=== PATIENT | male | born 1970 | race Caucasian/White ===

== ENCOUNTER → 2019-08-05 | Outpatient (CLI) | payer OTHER ==
[~2019-08-05] MED LIST: ATEN25TA PO; ATOR1TAB21 PO; GLUCAGON INJ 1MG VIAL As Ordered ONE; HYDR25TAB PO; ISOVUE-370 76% 100ML VIAL As Ordered ONE; OXYC1TAB15 PO; PARO10TA3 PO; VITA500C19 PO; VoLumen 0.1% SUSPENSION 450ML BOTTLE As Ordered ONE
--- NOTE | 2019-08-05 14:35 | REP ---
Clinical: Diarrhea. Technique: Contrast enhanced CT using enterography technique. Axial contrast enhanced images obtained in arterial and portal venous phases of enhancement using 100 ml Isovue 370 intravenous contrast material along with low density oral contrast material as per protocol. Coronal and sagittal re-formations and MIP reconstructions are obtained. Comparison: 07/12/2019, 07/13/2019 Findings: Current examination demonstrates mild to moderate diffuse jejunal fold thickening along with mildly prominent mesenteric adenopathy similar to prior examination. The previously noted at focal jejunal intussusception was likely transient and no longer apparent on current examination. The stomach, duodenum, ileum, and large bowel appear relatively normal including normal terminal ileum, cecum and appendix in the right lower quadrant. No ascites or free air. Liver, spleen, pancreas, gallbladder, bilateral adrenal glands, right kidney, and left pelvic kidney remain relatively normal / stable. Incidental 1.3 cm left hepatic cyst again noted. Pelvis demonstrates normal bladder and age appropriate prostate/seminal vesicles. Abdominal aorta without aneurysm or dissection. Musculoskeletal structures demonstrate age-related degenerative changes along with advanced changes to the bilateral femoral heads/hips (right greater than left) possibly related to underlying avascular necrosis. Impression: 1. Moderate diffuse jejunal fold thickening along with mesenteric adenopathy is nonspecific. Underlying malabsorption diseases including celiac sprue should be considered. 2. Previously noted jejunal intussusception has resolved and was likely transient due to the associated adenopathy and mucosal fold thickening. 3. 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 Electronically Signed by Darrin Hull MD 08/05/2019 02:26 P
== END ==
LOC: M RAD 12:06
PROVIDERS: ATTEND Physician Assistant Medical
DX: R19.7 Diarrhea, unspecified (principal)
CPT/HCPCS: 36415; 74177; 80053; 82150; 83690; 85025; 86140; J1610; Q9967

== ENCOUNTER → 2019-08-05 | Outpatient (CLI) | payer OTHER ==
[~2019-08-05] MED LIST changes: -GLUCAGON INJ 1MG VIAL As Ordered ONE; -ISOVUE-370 76% 100ML VIAL As Ordered ONE; -VoLumen 0.1% SUSPENSION 450ML BOTTLE As Ordered ONE
[2019-08-05 12:27] LABS: BASO % 0.2 % (0.0-1.0); EOS # 0.1 10^3/uL (0.0-0.5); EOS % 0.6 % (0.0-3.0); HEMATOCRIT 41.5 % (42.0-52.0); HEMOGLOBIN 13.4 g/dl (13.5-17.5); LYMPH % 5.7 % (24.0-44.0); MEAN CORPUSCULAR HEMOGLOBIN 28.5 pg (27.0-33.0); MEAN CORPUSCULAR HGB CONC 32.3 g/dl (32.0-36.5); MEAN CORPUSCULAR VOLUME 88.1 fl (80.0-96.0); MONO # 1.2 10^3/uL (0.0-0.8); MONO % 6.7 % (0.0-5.0); NEUTROPHILS # 15.1 10^3/uL (1.5-8.5); NEUTROPHILS % 86.3 % (36.0-66.0); PLATELET COUNT, AUTOMATED 260 10^3/uL (150-450); RED BLOOD COUNT 4.71 10^6/uL (4.30-6.10); WHITE BLOOD COUNT 17.5 10^3/uL (4.0-10.0)
[2019-08-05 13:00] LABS: ALBUMIN 3.2 GM/DL (3.2-5.2); ALT/SGPT 58 U/L (12-78); AMYLASE 44 U/L (25-115); BILIRUBIN,TOTAL 0.4 MG/DL (0.2-1.0); BLOOD UREA NITROGEN 14 MG/DL (7-18); C REACTIVE PROTEIN QUANTITATIV 1.09 MG/DL (0.00-0.30); CARBON DIOXIDE LEVEL 27 MEQ/L (21-32); CHLORIDE LEVEL 104 MEQ/L (98-107); CREATININE FOR GFR 0.77 MG/DL (0.70-1.30); GLOMERULAR FILTRATION RATE > 60.0 (>60); GLUCOSE, FASTING 133 MG/DL (70-100); LIPASE 127 U/L (73-393); POTASSIUM SERUM 3.7 MEQ/L (3.5-5.1); SODIUM LEVEL 136 MEQ/L (136-145); TOTAL PROTEIN 7.4 GM/DL (6.4-8.2)
== END ==
LOC: M LAB 11:09
PROVIDERS: ATTEND Physician Assistant Medical
DX: R19.7 Diarrhea, unspecified (principal)

== ENCOUNTER → 2019-08-06 | Outpatient (REF) | payer OTHER | LOC: M LAB REF 14:24 | PROVIDERS: ATTEND Physician Assistant Medical | DX: R19.7 Diarrhea, unspecified (principal) ==

== ENCOUNTER → 2019-08-12 | Outpatient (CLI) | payer OTHER ==
[~2019-08-12] MED LIST changes: +ISOVUE-370 76% 100ML VIAL As Ordered ONE
--- NOTE | 2019-08-12 12:19 | REP ---
CT CHEST WITH IV CONTRAST: There is a 4 mm nodular density in the right lower lobe without calcification. There are four calcified granulomas identified in the left upper lobe. No other abnormal parenchymal opacities are seen. Normal size lymph nodes are seen in the axillary, mediastinal, and hilar regions with no evidence of significant adenopathy. The heart is normal in size. There is no pleural or pericardial effusion. Thoracic aorta is normal in caliber with no aneurysm or dissection. IMPRESSION: No significant adenopathy. Small calcified granulomas left upper lobe. 4 mm nodular density right lower lobe. If the patient is low risk for cancer, then no followup is needed. If there is high risk for cancer then followup is recommended in 6 months. Electronically Signed by Adonis Sewell MD 08/12/2019 03:10 P
== END ==
LOC: M RAD 10:50
PROVIDERS: ATTEND Internal Medicine Hematology & Oncology
DX: R06.02 Shortness of breath (principal); R59.0 Localized enlarged lymph nodes; R63.4 Abnormal weight loss
CPT/HCPCS: 71260; Q9967

== ENCOUNTER → 2019-08-31 | Outpatient (CLI) | payer OTHER ==
[~2019-08-31] MED LIST changes: -ISOVUE-370 76% 100ML VIAL As Ordered ONE
== END ==
LOC: M LAB 11:25
PROVIDERS: ATTEND Physician Assistant Medical
DX: R10.13 Epigastric pain (principal); R19.7 Diarrhea, unspecified

== ENCOUNTER 2019-09-01 06:07 | Emergency (ER) | payer OTHER ==
[~2019-09-01] VITALS: Ht 180.3 cm; Wt 64.1 kg
[2019-09-01] MEDS ORDERED: NS 1,000 ML IV ONE (06:45)
[2019-09-01 07:03] LABS: BASO % 0.3 % (0.0-1.0); EOS # 0.1 10^3/uL (0.0-0.5); EOS % 1.8 % (0.0-3.0); HEMATOCRIT 44.8 % (42.0-52.0); HEMOGLOBIN 14.2 g/dl (13.5-17.5); LYMPH # 1.5 10^3/uL (1.5-5.0); LYMPH % 19.2 % (24.0-44.0); MEAN CORPUSCULAR HEMOGLOBIN 28.1 pg (27.0-33.0); MEAN CORPUSCULAR HGB CONC 31.7 g/dl (32.0-36.5); MEAN CORPUSCULAR VOLUME 88.7 fl (80.0-96.0); MONO # 1.1 10^3/uL (0.0-0.8); MONO % 14.2 % (0.0-5.0); NEUTROPHILS # 4.9 10^3/uL (1.5-8.5); NEUTROPHILS % 64.2 % (36.0-66.0); PLATELET COUNT, AUTOMATED 247 10^3/uL (150-450); RED BLOOD COUNT 5.05 10^6/uL (4.30-6.10); WHITE BLOOD COUNT 7.6 10^3/uL (4.0-10.0)
[2019-09-01 07:34] LABS: ALBUMIN 3.4 GM/DL (3.2-5.2); ALT/SGPT 78 U/L (12-78); BILIRUBIN,DIRECT 0.2 MG/DL (0.0-0.2); BILIRUBIN,TOTAL 0.5 MG/DL (0.2-1.0); CK-MB VALUE MASS < 1.0 NG/ML (<3.6); CPK CREATINE PHOSPHOKINASE 106 U/L (39-308); LIPASE 256 U/L (73-393); MB/CK RELATIVE INDEX 0.94 (< OR =4); TOTAL PROTEIN 8.3 GM/DL (6.4-8.2)
--- NOTE | 2019-09-01 07:43 | REPVR ---
PROCEDURE INFORMATION: Exam: CT Abdomen And Pelvis Without Contrast Exam date and time: 09/01/2019 7:01 AM Age: 49 years old Clinical indication: Abdominal pain; Flank; Right; Additional info: R flank extending into rlq/testicle TECHNIQUE: Imaging protocol: Computed tomography of the abdomen and pelvis without contrast. Radiation optimization: All CT scans at this facility use at least one of these dose optimization techniques: automated exposure control; mA and/or kV adjustment per patient size (includes targeted exams where dose is matched to clinical indication); or iterative reconstruction. COMPARISON: CT ABD/PELVIS W/ IV CONTRAST ONLY - OUTSIDE PRIOR 07/12/2019 5:13 PM FINDINGS: Liver: Subtle hypodense lesion in the left hepatic lobe measuring 9 mm. (Series 201, image 17). No change from prior. Gallbladder and bile ducts: Normal. No calcified stones. No ductal dilation. Pancreas: Normal. No ductal dilation. Spleen: Normal. No splenomegaly. Adrenals: Normal. No mass. Kidneys and ureters: Right kidney is normal in size and position. No right hydronephrosis. Crossed unfused ectopic left pelvic kidney. Stomach and bowel: Evaluation of bowel is limited. Fluid and stool in the colon. No abnormal bowel dilatation. Appendix: Appendix is normal. Intraperitoneal space: Unremarkable. No free air. No significant fluid collection. Vasculature: Unremarkable. No abdominal aortic aneurysm. Lymph nodes: Multiple small mesenteric nodes. Bladder: Unremarkable as visualized. Reproductive: Prostate is normal in size. Bones/joints: No acute fracture. Moderate degenerative spine. Partial collapse of the femoral heads bilaterally. Severe marginal osteophytes in the right hip. Mild marginal osteophytes in the left hip. There are subchondral cystic in the hip joints bilaterally, right greater than left. Soft tissues: Unremarkable. IMPRESSION: 1. No hydronephrosis or renal stones. 2. Diarrhea of unknown etiology. 3. 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 No change from prior. 4. 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 5. Additional findings as described. Electronically signed by: Elisa Maldonado On 09/01/2019 07:43:41 AM
[2019-09-01 08:16] VITALS: BP 113/70
--- NOTE | 2019-09-01 13:01 | ED PDOC ---
Post-Departure Follow-Up ct abd/p faxed to [facility] for fu Cathie Fernandez MD Sep 01, 2019 13:01
== END 2019-09-01 08:17 | disposition home or self-care (01) ==
LOC: M ED 06:07
DX: R31.9 Hematuria, unspecified (principal); M87.051 Idiopathic aseptic necrosis of right femur; M87.052 Idiopathic aseptic necrosis of left femur; F17.200 Nicotine dependence, unspecified, uncomplicated; I10 Essential (primary) hypertension; Z79.891 Long term (current) use of opiate analgesic; Z79.899 Other long term (current) drug therapy; R19.7 Diarrhea, unspecified

== ENCOUNTER → 2019-11-09 | Outpatient (CLI) | payer OTHER ==
[2019-11-09 13:03] LABS: BASO % 0.3 % (0.0-1.0); EOS # 0.1 10^3/uL (0.0-0.5); EOS % 1.4 % (0.0-3.0); HEMATOCRIT 42.8 % (42.0-52.0); HEMOGLOBIN 13.6 g/dl (13.5-17.5); LYMPH # 1.2 10^3/uL (1.5-5.0); LYMPH % 16.6 % (24.0-44.0); MEAN CORPUSCULAR HEMOGLOBIN 29.4 pg (27.0-33.0); MEAN CORPUSCULAR HGB CONC 31.8 g/dl (32.0-36.5); MEAN CORPUSCULAR VOLUME 92.6 fl (80.0-96.0); MONO # 0.7 10^3/uL (0.0-0.8); MONO % 10.1 % (0.0-5.0); PLATELET COUNT, AUTOMATED 263 10^3/uL (150-450); RED BLOOD COUNT 4.62 10^6/uL (4.30-6.10)
[2019-11-12 18:07] LABS: CHROMOGRANIN A 220.6 ng/mL (0.0-101.8)
== END ==
LOC: M LAB 11:54
PROVIDERS: ATTEND Physician Assistant Medical
DX: R19.7 Diarrhea, unspecified (principal)

== ENCOUNTER → 2019-11-12 | Outpatient (CLI) | payer OTHER ==
[~2019-11-12] MED LIST changes: +ISOVUE-370 76% 100ML VIAL As Ordered ONE
--- NOTE | 2019-11-19 09:18 | REP ---
CONTRAST ENHANCED CT OF THE ABDOMEN AND PELVIS CLINICAL: Abdominal pain and weight loss. COMPARISON: 09/01/2019. TECHNIQUE: Axial contrast images from the lung bases to the pubic symphysis using 100 mL Isovue-370 intravenous contrast material with coronal and sagittal reformations. FINDINGS: Lung bases are clear. Visualized heart and pericardium normal. Liver, spleen, pancreas, gallbladder, bilateral adrenal glands, and right kidney are normal. An ectopic left kidney is identified in the right hemipelvis without associated abnormal findings. The enteric system is without obstruction or acute inflammatory process. Normal terminal ileum, cecum, and appendix are identified in the right lower quadrant. Pelvis demonstrates normal bladder and age appropriate prostate/seminal vesicles. No ascites. No free air. No adenopathy. Abdominal aorta and vasculature appear normal. Musculoskeletal structures demonstrate degenerative changes to the lumbosacral spine, as well as evidence for significant avascular necrosis involving the bilateral hips (right greater than left). There appears to be cortical breaks through the bilateral femoral heads (right greater than left) suggesting chronic fracturing related to avascular necrosis (AVN). IMPRESSION: * No acute abdominopelvic pathology appreciated. 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 MTDD
== END ==
LOC: M RAD 08:55
PROVIDERS: ATTEND Physician Assistant Medical
DX: R63.4 Abnormal weight loss (principal)
CPT/HCPCS: 74177; Q9967

== ENCOUNTER → 2019-12-22 | Outpatient (CLI) | payer OTHER ==
[~2019-12-22] MED LIST changes: +HYDR-3490 PO; -HYDR25TAB PO; -ISOVUE-370 76% 100ML VIAL As Ordered ONE
[2019-12-22 12:15] LABS: C REACTIVE PROTEIN QUANTITATIV < 0.30 MG/DL (0.00-0.30); FERRITIN 58 NG/ML (26-388); IRON (FE) 72 UG/DL (65-175); RHEUMATOID FACTOR QUANT 18.3 IU/ML (<15.0); TOTAL PROTEIN 7.7 GM/DL (6.4-8.2); URIC ACID 4.9 MG/DL (3.5-7.2)
--- NOTE | 2019-12-22 13:56 | REP ---
INDICATION: PAIN IN RIGHT SHOULDER LABS FIRST FILE ROOM. COMPARISON: None. TECHNIQUE: Three views. FINDINGS: The right glenohumeral and acromioclavicular joints are normally aligned. Periarticular soft tissues are unremarkable. No erosive changes seen. IMPRESSION: Negative right shoulder radiographs. <Electronically signed by Alvarado Andino > 12/22/19 [id number]
[2019-12-23 11:58] LABS: ALBUMIN 4.03 GM/DL (3.29-5.55); ALBUMIN % 52.4 % (55.8-66.1); ALPHA-1-GLOBULIN % 5.5 % (2.9-4.9); ALPHA-1-GLOBULINS 0.42 GM/DL (0.17-0.41); ALPHA-2-GLOBULINS 0.74 GM/DL (0.42-0.99); ALPHA-2-GLOBULINS % 9.6 % (7.1-11.8); BETA-1-GLOBULINS % 7.8 % (4.7-7.2); BETA-2-GLOBULINS 0.55 GM/DL (0.19-0.55); BETA-2-GLOBULINS % 7.2 % (3.2-6.5); GAMMA GLOBULIN % 17.5 % (11.1-18.8); GAMMA GLOBULINS 1.35 GM/DL (0.65-1.58)
[2019-12-29 20:08] LABS: BETA-2 GLYCOPROTEIN I ABY IGA 9 (0-25); BETA-2 GLYCOPROTEIN I ABY IGG <9 (0-20); BETA-2 GLYCOPROTEIN I ABY IGM <9 (0-32); CARDIOLIPIN IGA ANTIBODY <9 APL U/mL (0-11); CARDIOLIPIN IGG ANTIBODY <9 GPL U/mL (0-14); CARDIOLIPIN IGM ANTIBODY 11 MPL U/mL (0-12); CYCLIC CITRULLINATED PEPTIDE 6 units (0-19); HLA-B27 Negative (.); Lyme Disease IgG/IgM Antibodie <0.91 ISR (0.00-0.90); Lyme Disease IgM Ab Quantitati <0.80 index (0.00-0.79); SSA SJOGRENS A <0.2 AI (0.0-0.9); SSB SJOGRENS B <0.2 AI (0.0-0.9)
== END ==
LOC: M LAB 10:31
PROVIDERS: ATTEND Internal Medicine
DX: M25.511 Pain in right shoulder (principal); M87.052 Idiopathic aseptic necrosis of left femur; R76.8 Other specified abnormal immunological findings in serum
CPT/HCPCS: 36415; 73030; 81374; 82728; 83540; 84165; 84550; 85613; 85652; 85732; 86140; 86146; 86147; 86200; 86235; 86431; 86617; G0463

== ENCOUNTER → 2019-12-22 | Outpatient (REF) | payer OTHER ==
[~2019-12-22] MED LIST changes: -HYDR-3490 PO; +HYDR25TAB PO
== END ==
LOC: M SFHCRHEU 12:35
PROVIDERS: ATTEND Internal Medicine
DX: Z53.9 Procedure and treatment not carried out, unspecified reason (principal); M87.052 Idiopathic aseptic necrosis of left femur; R76.8 Other specified abnormal immunological findings in serum; M25.50 Pain in unspecified joint

== ENCOUNTER → 2020-01-07 | Outpatient (CLI) | payer OTHER ==
--- NOTE | 2020-01-07 17:00 | REP ---
INDICATION: RT SHOULDER PAIN. COMPARISON: Plain films 12/22/2019. TECHNIQUE: Coronal oblique T1, T2 fat sat, sagittal oblique T2 fat sat, axial T2 fat sat, gradient echo. FINDINGS: Rotator cuff: There are partial-thickness undersurface tears of the supraspinatus and infraspinatus tendons. Acromioclavicular joint: There are mild hypertrophic degenerative changes at the acromioclavicular joint with a tiny amount of fluid in the joint and some minor subchondral marrow edema. Acromion: Type 2 Biceps Tendon: In bicipital groove, surrounded by small amount of fluid.. Hill Sach's deformity: None. Deltoid muscle: No abnormal signal. Biceps labral complex: Intact. Labrum: No tear. Cartilage: No defects. Bone marrow: Multiple tiny subcortical cysts are seen in the superolateral humeral head. Joint fluid: No effusion. IMPRESSION: Partial thickness undersurface tears of the supraspinatus and infraspinatus tendons. Mild hypertrophic degenerative changes acromioclavicular joint. No labral tear seen. Subcortical cystic changes superolateral humeral head. <Electronically signed by Adonis Sewell > 01/07/20 [id number]
== END ==
LOC: M RAD 15:03
PROVIDERS: ATTEND Internal Medicine
DX: M25.511 Pain in right shoulder (principal); M19.011 Primary osteoarthritis, right shoulder; M85.421 Solitary bone cyst, right humerus; S46.911A Strain of unspecified muscle, fascia and tendon at shoulder and upper arm level, right arm, initial encounter; X58.XXXA Exposure to other specified factors, initial encounter; Y92.9 Unspecified place or not applicable

== ENCOUNTER 2020-11-21 12:36 | Emergency (ER) | payer OTHER ==
[~2020-11-21] VITALS: Ht 180.3 cm; Wt 82.6 kg
[~2020-11-21 12:36] MED LIST changes: +HYDR-3490 PO; -HYDR25TAB PO; -OXYC1TAB15 PO; +OXYC7.5T3 PO
[2020-11-21] MEDS ORDERED: BACTDSTA (13:28)
[2020-11-21 16:19] LABS: BASO # 0.1 10^3/uL (0.0-0.2); BASO % 0.9 % (0.0-1.0); EOS # 0.2 10^3/uL (0.0-0.5); EOS % 3.2 % (0.0-3.0); HEMATOCRIT 38.6 % (42.0-52.0); HEMOGLOBIN 12.3 g/dl (13.5-17.5); LYMPH # 1.4 10^3/uL (1.5-5.0); LYMPH % 19.9 % (24.0-44.0); MEAN CORPUSCULAR HEMOGLOBIN 28.5 pg (27.0-33.0); MEAN CORPUSCULAR HGB CONC 31.9 g/dl (32.0-36.5); MEAN CORPUSCULAR VOLUME 89.4 fl (80.0-96.0); MONO # 0.9 10^3/uL (0.0-0.8); MONO % 12.9 % (2.0-8.0); NEUTROPHILS # 4.4 10^3/uL (1.5-8.5); NEUTROPHILS % 62.8 % (36.0-66.0); PLATELET COUNT, AUTOMATED 270 10^3/uL (150-450); RED BLOOD COUNT 4.32 10^6/uL (4.30-6.10)
[2020-11-21 16:46] LABS: C REACTIVE PROTEIN QUANTITATIV 0.57 MG/DL (0.00-0.30)
[2020-11-21 16:59] LABS: ERYTHROCYTE SEDIMENTATION RATE 59 mm/hr (0-15)
--- NOTE | 2020-11-21 19:07 | REP ---
INDICATION: post op infection COMPARISON: None. TECHNIQUE: AP and frog-lateral views of the left hip FINDINGS: Evidence for prior hip replacement with normal appearance and positioning to the orthopedic hardware. The osseous structures are grossly intact/normal. Surrounding soft tissue swelling is suggested. IMPRESSION: Soft tissue swelling. <Electronically signed by Darrin Hull > 11/21/20 [id number]
[2020-11-21 19:15] LABS: BLOOD UREA NITROGEN 12 MG/DL (7-18); CALCIUM LEVEL 9.1 MG/DL (8.5-10.1); CARBON DIOXIDE LEVEL 30 MEQ/L (21-32); CHLORIDE LEVEL 101 MEQ/L (98-107); CREATININE FOR GFR 0.93 MG/DL (0.70-1.30); GLOMERULAR FILTRATION RATE > 60.0 (>60); GLUCOSE, FASTING 103 MG/DL (70-100); POTASSIUM SERUM 3.5 MEQ/L (3.5-5.1); SODIUM LEVEL 137 MEQ/L (136-145)
[2020-11-21] MEDS ORDERED: CEPH500C PO (21:24)
[2020-11-21] MEDS ORDERED: CEPHALEXIN 500 MG CAP PO ONE (21:25)
[2020-11-21] MEDS ORDERED: ceFAZolin SOD 2 GM in IV 1 EA IV ONE (21:25)
[2020-11-21] MEDS ORDERED: ceFAZolin SOD 1 GM in D5W MINI-BAG PLUS 50 ML IV ONE ×2 (21:30→21:45)
[2020-11-21 21:48] VITALS: BP 137/90
== END 2020-11-21 22:25 | disposition home or self-care (01) ==
LOC: M ED 12:36
DX: T88.9XXA Complication of surgical and medical care, unspecified, initial encounter (principal); L03.90 Cellulitis, unspecified; Z96.641 Presence of right artificial hip joint; Z79.899 Other long term (current) drug therapy
CPT/HCPCS: 73502; 80047; 80048; 81001; 83605; 85025; 85652; 86140; 87040; 87070; 87077; 87186; 87205; 96365; 99283; J0690